=== PATIENT | male | born 1990 | race Two or more races ===

== ENCOUNTER 2021-07-15 17:57 | Emergency (ER) | payer OTHER ==
[~2021-07-15] VITALS: Ht 172.7 cm; Wt 68.0 kg
[~2021-07-15 17:57] MED LIST: GUAI-755 PO
[2021-07-15 18:19] VITALS: BP 141/99
== END 2021-07-15 19:02 | disposition home or self-care (01) ==
LOC: ER 17:58
DX: R00.2 Palpitations (principal); F41.9 Anxiety disorder, unspecified; Z88.0 Allergy status to penicillin

== ENCOUNTER 2024-07-02 08:59 | Emergency (ER) | payer OTHER ==
[~2024-07-02] VITALS: Ht 172.7 cm; Wt 70.3 kg
[2024-07-02] MEDS: ACETAMINOPHEN ES 500 MG TABLET PO ONE (09:15)
[2024-07-02] MEDS: diphenhydrAMINE HCL 50 MG/ML VIAL IV ONE (09:20)
[2024-07-02] MEDS ORDERED: CT SWABBABLE VALVE TRANS SET 1 EA INFUS.SET MC ONE (09:25)
[2024-07-02] MEDS ORDERED: IOHEXOL-350 100 ML VIAL IV ONE (09:25)
[2024-07-02] MEDS ORDERED: IV NS 0.9% 250 ML IV ONE (09:25)
[2024-07-02] MEDS ORDERED: diphenhydrAMINE HCL 50 MG/ML VIAL ONE (09:26)
[2024-07-02] MEDS ORDERED: METOCLOPRAMIDE HCL 10 MG/2 ML VIAL ONE (09:27)
[2024-07-02] MEDS ORDERED: ACETAMINOPHEN ES 500 MG TABLET ONE (09:27)
[2024-07-02] MEDS: IV NS 0.9% 1,000 ML BAG IV ONE (09:30)
[2024-07-02 09:37] LABS: BASOPHILS # (AUTO) 0.1 K/uL (0.0-0.2); BASOPHILS % (AUTO) 0.9 % (0.0-2.0); EOSINOPHILS # (AUTO) 0.3 K/uL (0.0-0.7); EOSINOPHILS % (AUTO) 5.3 % (0.0-6.0); HEMATOCRIT 44 % (39-51); LYMPHOCYTES # (AUTO) 2.2 K/uL (0.8-4.8); LYMPHOCYTES % (AUTO) 33.4 % (20.0-44.0); MEAN CORPUSCULAR HEMOGLOBIN 28 PG (26.0-33.0); MEAN CORPUSCULAR HGB CONC 34 g/dl (31.0-36.0); MEAN CORPUSCULAR VOLUME 81 fL (80-96); MONOCYTES # (AUTO) 0.5 K/uL (0.1-1.30); MONOCYTES % (AUTO) 7.5 % (2.0-12.0); NEUTROPHILS # (AUTO) 3.4 K/uL (1.8-8.9); NEUTROPHILS % (AUTO) 52.9 % (43.0-81.0); PLATELET COUNT (AUTO) 216 K/uL (150-450); RED BLOOD CELL COUNT(AUTO) 5.47 MIL/uL (4.5-6.0); RED CELL DISTRIBUTION WIDTH 13.3 % (11.5-15.0); WHITE BLOOD COUNT (AUTO) 6.5 K/uL (4.3-11.0)
[2024-07-02 09:44] LABS: CALCIUM, SERUM 9.3 mg/dL (8.5-10.1); POTASSIUM 3.6 mmol/L (3.5-5.1)
[2024-07-02] MEDS: dexaMETHasone SOD PHOSPHATE 10 MG/ML VIAL IV ONE (10:05)
[2024-07-02] MEDS: METOCLOPRAMIDE HCL 10 MG/2 ML VIAL IV ONE (10:15)
[2024-07-02] MEDS ORDERED: dexaMETHasone SOD PHOSPHATE 1 ML ONE (10:15)
[2024-07-02] MEDS ORDERED: KETOROLAC TROMETHAMINE 15 MG/ML VIAL ONE (10:53)
[2024-07-02] MEDS: KETOROLAC TROMETHAMINE 15 MG/ML VIAL IV ONE (11:00)
[2024-07-02] MEDS ORDERED: IBUP-1955 PO (11:17)
[2024-07-02 11:48] VITALS: BP 103/67; TEMP 98.3; O2SAT 96
== END 2024-07-02 11:30 | disposition home or self-care (01) ==
LOC: ER 09:09
DX: R51.9 Headache, unspecified (principal); F41.9 Anxiety disorder, unspecified; R41.0 Disorientation, unspecified; Z79.52 Long term (current) use of systemic steroids; Z88.0 Allergy status to penicillin
CPT/HCPCS: 99285; 70498; 96374; 96375; 96361; 70496; 85025; 80048; 36415; 70450; J1100; J1200; J2765; J7030; J7050; A4223; Q9967; J1885

== ENCOUNTER 2025-09-26 20:03 | Emergency (ER) | payer OTHER ==
[~2025-09-26 20:03] MED LIST changes: +IBUP-1955 PO
== END 2025-09-26 23:12 | disposition left against medical advice (07) ==
LOC: ER 20:14
DX: R06.2 Wheezing (principal); Z53.21 Procedure and treatment not carried out due to patient leaving prior to being seen by health care provider